=== PATIENT | male | born 1955 | race Caucasian/White ===

== ENCOUNTER 2016-08-16 23:28 | Emergency (ER) | payer OTHER ==
[~2016-08-16 23:28] MED LIST: ASPIR-LOW81 MG PO; K-DUR TAB 20 M20 MEQ PO; LASIX40 MG PO; LIPITOR TAB 1010 MG PO; METOLAZONE5 MG PO
[2016-08-17 02:21] LABS: HEMOGLOBIN 13.8 gm/dl (14.0-17.5); RED BLOOD COUNT 4.53 M/UL (4.20-5.50); WHITE BLOOD COUNT 5.9 K/UL (4.5-11.0)
[2016-08-17 03:25] LABS: BUN/CREATININE RATIO 19 (0-10)
== END 2016-08-17 07:30 | disposition home or self-care (01) ==
LOC: ER1 23:28
PROVIDERS: Emergency Medicine
DX: K43.9 Ventral hernia without obstruction or gangrene (principal); K74.60 Unspecified cirrhosis of liver; E27.8 Other specified disorders of adrenal gland; I48.91 Unspecified atrial fibrillation; Z86.79 Personal history of other diseases of the circulatory system; Z95.5 Presence of coronary angioplasty implant and graft
CPT/HCPCS: 36415; 80053; 82150; 83690; 85025; 96374; 96375; 96376; 99284; J2270; J2405; J7050; Q9962